=== PATIENT | male | born 1965 | race Caucasian/White ===

== ENCOUNTER 2017-03-14 08:09 | Inpatient (IN) | payer OTHER ==
--- NOTE | 2017-03-13 21:58 | GHP ---
[f rep st] PREOP HISTORY AND PHYSICAL DATE OF ADMISSION: 03/14/2017 PROBLEM: Severe left hip degenerative arthritis. HISTORY OF PRESENT ILLNESS: Nahid is a 52-year-old male who will be undergoing a left hip resurfacin g arthroplasty with Dr. Garduno at the [facility] on 03/14/2017. The patient first b carole having pain in his left hip 10 years ago. Progressively over time his pain got worse. In 2011 , he was diagnosed with arthritis. Now, he is having both daily pain at night and during the daytim e. His activities have become severely limited secondary to pain. He is able to ride an exercise b kristal, with pain. He uses Aleve on a weekly basis. He does have difficulty putting on shoes and sock s on the left side. He has not had any previous surgery, physical therapy or cortisone injections f or the left hip. Because of his progressive pain, advanced arthritis, and recalcitrant response to conservative therapies, the patient has elected to proceed with a left hip resurfacing arthroplasty. PAST MEDICAL HISTORY: Noncontributory. No previous history of DVT, PE, HI, CAD, MRSA infection, me stephania allergies or hepatitis. CURRENT MEDICATIONS: None. ALLERGIES: No known drug allergies. SOCIAL HISTORY: The patient is . He lives in [facility]. He is a nonsmoker, and occas ional alcohol intake. 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 FAMILY HISTORY: Noncontributory. PHYSICAL EXAMINATION: GENERAL: He is a healthy-appearing 52-year-old male. VITAL SIGNS: Height 6 feet 1 inch tall, weight 200 pounds. BMI 26.4. HEENT: Head is normocephalic, atraumatic. Eyes are PERRLA. Conjunctivae and sclerae are clear. M outh: He has good oral hygiene without any loose teeth. LUNGS: Clear. HEART: Regular rate and r hythm without murmurs, gallops, rubs. EXTREMITIES: Pertinent findings are limited to the patient's left hip. He has full hip extension, 90 degrees of flexion, 0 degrees of internal rotation, and 20 degrees of external rotation. IMAGING: Recent x-rays taken of the patient's left hip show severe degenerative arthritis of the le ft hip. He is bone on bone on the weightbearing aspect of the hip. He has large osteophyte formati on and increased subchondral sclerosis. No significant femoral lysis of the femoral head. IMPRESSION: On admission severe left hip degenerative arthritis. PLAN: The plan will be for the patient to undergo a left hip resurfacing arthroplasty with Dr. Medina or at the [facility] on Sunday, March 14, 2017. The surgery has been described to the patient including the risks, benefits, and expectations. He understands the risks and dislocat ion, femoral neck fracture, infection, sciatic nerve injury, as well as possible future revision isabel alex. He understands the issues surrounding metal ions in the blood and soft tissues around the hip joint. All his questions have been answered. He consents to surgery here in the office today. /[id number]/MODL
[~2017-03-14 08:09] MED LIST: NS IV ONE; POVIDONE-IODINE 20 ML in SODIUM CL IRRIG SOLUTION 500 ML IRR ONE; ROPIVACAINE 0.2% 80 MG, EPINEPHrine 0.2 MG, KETOROLAC TROMETHAMINE 30 MG in BAG 0 ML IU ONE; TRANEXAMIC ACID IV ONE; ceFAZolin 2 GM/DEXTROSE 100 ML IV ONE
[2017-03-14] MEDS ORDERED: ACETAMINOPHEN 325 MG TAB PO ONE (08:22)
[2017-03-14] MEDS ORDERED: FAMOTIDINE 20 MG TAB PO ONE (08:22)
[2017-03-14] MEDS ORDERED: DEXAMETHASONE 4 MG/ML VIAL IVP ONE (08:22)
[2017-03-14] MEDS ORDERED: LIDOCAINE 1% 2 ML INJ ID PRN (08:25)
[2017-03-14] MEDS ORDERED: LR 1,000 ML IV ONE (08:25)
[2017-03-14] MEDS ORDERED: MIDAZOLAM 2 MG/2 ML VIAL IVP ONE (09:05)
--- NOTE | 2017-03-14 09:30 | PDHPUP ---
History & Physical Update H&P update statement: This history and physical update is based on an assessment of the patient which was completed after admission or registration (within 24 hours), but prior to the surgery/procedure. H&P update: H&P reviewed & patient examined, no change in patient's condition since H&P completed
[2017-03-14] MEDS ORDERED: ceFAZolin 1 GM/5 ML SYR ONE (09:57)
--- NOTE | 2017-03-14 10:07 | PDANEPAE ---
ANE History of Present Illness 52 yo male with severe OA of L hip. ANE Past Medical History Past Medical History: No URI or fever in past 2 weeks. - Cardiovascular History Hx Hypertension: No Hx Arrhythmias: No Hx Chest Pain: No Hx Coronary Artery / Peripheral Vascular Disease: No Hx CHF / Valvular Disease: No Hx Palpitations: No - Pulmonary History Hx COPD: No Hx Asthma/Reactive Airway Disease: No Hx Recent Upper Respiratory Infection: No Hx Oxygen in Use at Home: No Hx Sleep Apnea: No Sleep Apnea Screening Result - Last Documented: Negative - Neurologic History Hx Cerebrovascular Accident: No Hx Seizures: No Hx Dementia: No - Endocrine History Hx Diabetes: No - Renal History Hx Renal Disorders: No - Liver History Hx Hepatic Disorders: No - Neurological & Psychiatric Hx Hx Neurological and Psychiatric Disorders: No - Cancer History Hx Cancer: No - Congenital Disorder History Hx Congenital Disorders: No - GI History Hx Gastrointestinal Disorders: No - Other Health History Other Health History: reading glasses - Chronic Pain History Chronic Pain: No - Surgical History Prior Surgeries: hpv polyps removed from throat. wisdom teeth extracted x2 ANE Review of Systems Review of systems is: negative - Exercise capacity METS (RN): 4 METS - Systems Constitutional: Reports: no symptoms Cardiac: Reports: no symptoms Respiratory: Reports: no symptoms ANE Patient History - Allergies Allergies/Adverse Reactions: Penicillins Allergy (Verified 03/07/17 10:40) Unknown - Home Medications Home Medications: Herbals/Supplements -Info Only 03/07/17 [Last Taken 03/07/17] - NPO status NPO Since - Liquids (Date): 03/13/17 NPO Since - Liquids (Time): 18:00 NPO Since - Solids (Date): 03/13/17 NPO Since - Solids (Time): 12:00 - Anes Hx Anes Hx: no prior problems - Smoking Hx Smoking Status: Never smoked Marijuana use: No - Alcohol Use Alcohol Use: Occasionally (daily drink) - Family Anes Hx Family Anes Hx: neg - N/A Family Hx Anesthesia Complications: none ANE Labs/Vital Signs - Vital Signs Blood Pressure: 123/72 Heart Rate: 70 Respiratory Rate: 16 O2 Sat (%): 95 Height: 185.42 cm Weight: 90.718 kg ANE Physical Exam - Airway Neck exam: FROM Mallampati Score: Class 2 Mouth exam: normal dental/mouth exam - Pulmonary Pulmonary: clear to auscultation - Cardiovascular Cardiovascular: regular rate and rhythym - ASA Status ASA Status: II ANE Anesthesia Plan Anesthesia Plan: spinal
[2017-03-14] MEDS ORDERED: PROPOFOL/EMULSION 500 MG/50 ML BOTTLE IV ONE (10:17)
[2017-03-14] MEDS ORDERED: LIDOCAINE 2% 5 ML SDV ONE (10:17)
[2017-03-14] MEDS ORDERED: fentaNYL 100 MCG/2 ML INJ ONE (10:17)
[2017-03-14] MEDS ORDERED: DEXAMETHASONE 4 MG/ML VIAL ONE (10:18)
[2017-03-14] MEDS ORDERED: PROPOFOL 200 MG/20 ML VIAL ONE (11:13)
[2017-03-14] MEDS ORDERED: NALOXONE HCL 0.4 MG/ML INJ IVP PRN (12:07)
[2017-03-14] MEDS ORDERED: OXYCODONE/APAP 5/325 TAB PO PRN (12:07)
[2017-03-14] MEDS ORDERED: ACETAMINOPHEN 500 MG TAB PO PRN (12:07)
[2017-03-14] MEDS ORDERED: fentaNYL 100 MCG/2 ML INJ IVP PRN (12:07)
[2017-03-14] MEDS ORDERED: ONDANSETRON 4 MG/2 ML VIAL IVP PRN ×2 (12:07→12:19)
[2017-03-14] MEDS ORDERED: LR 500 ML IV PRN (12:07)
--- NOTE | 2017-03-14 12:16 | POSTOPPROG ---
Post Op Note Date of Operation: 03/14/17 Surgeon: Maxwell Garduno Cable Maintainer: Jared Anesthesiologist: Dustin Anesthesia: IV Sedation, Spinal Post-op Diagnosis: Left hip advanced degenerative arthritis. Procedure: Left hip [place] hip resurfacing arthroplasty. Inf/Abcess present in the surg proc area at time of surgery?: No EBL: 50-100
[2017-03-14] MEDS ORDERED: PHARMACY PAIN CONSULT 1 EA MISC PRN (12:19)
[2017-03-14] MEDS ORDERED: METOCLOPRAMIDE 10 MG/2 ML VIAL IVP PRN (12:19)
[2017-03-14] MEDS ORDERED: NS 500 ML IV PRN (12:19)
[2017-03-14] MEDS ORDERED: PROMETHAZINE HCL 25 MG/ML INJ IVP PRN (12:19)
[2017-03-14] MEDS ORDERED: DIPHENOXYLATE/ATROPINE LOMOTIL 1 TAB PO PRN (12:19)
[2017-03-14] MEDS ORDERED: diphenhydrAMINE 25 MG CAP PO PRN (12:19)
[2017-03-14] MEDS ORDERED: TEMAZEPAM 15 MG CAP PO PRN (12:19)
[2017-03-14] MEDS ORDERED: PROMETHAZINE HCL 25 MG SUPPR PR PRN (12:19)
[2017-03-14] MEDS ORDERED: ONDANSETRON DISINTEGRATING 4 MG TAB PO PRN (12:19)
[2017-03-14] MEDS ORDERED: KETOROLAC 30 MG/1 ML SDV IVP PRN (12:19)
[2017-03-14] MEDS ORDERED: oxyCODONE IR 5 MG TAB PO PRN (12:19)
[2017-03-14] MEDS ORDERED: CYCLOBENZAPRINE 10 MG TAB PO PRN (12:19)
[2017-03-14] MEDS ORDERED: POLYETHYLENE GLYCOL 3350 17 GM PKT PO PRN (12:19)
[2017-03-14] MEDS ORDERED: traMADol 50 MG TAB PO PRN (12:19)
[2017-03-14] MEDS ORDERED: LACTULOSE 20 GM/30 ML UDCUP PO PRN (12:19)
[2017-03-14] MEDS ORDERED: MAGNESIUM HYDROXIDE 30 ML UDCUP PO PRN (12:19)
[2017-03-14] MEDS ORDERED: BISACODYL 10 MG SUPP PR PRN (12:19)
--- NOTE | 2017-03-14 12:44 | POSTANESTH ---
Post Anesthetic Evaluation Cardiovascular Status: Normal, Stable Respiratory Status: Normal, Stable Level of Consciousness/Mental Status: Can Participate in Eval, Alert and Oriented Pain Control: Adequate, Prn Tx Ordered Nausea/Vomiting Control: Adequate, Prn Tx Ordered Complications Possibly Related to Anesthesia: None Noted Notes: Able to move legs weakly, still insensate from spinal block.
[2017-03-14] MEDS ORDERED: ceFAZolin 2 GM/DEXTROSE 100 ML IV SCH (14:00)
[2017-03-14] MEDS: LR 1,000 ML IV SCH ×2 (15:31→23:46)
[2017-03-14] MEDS: ceFAZolin 2 GM/DEXTROSE 100 ML IV SCH (17:05)
[2017-03-14] MEDS: ACETAMINOPHEN 325 MG TAB PO SCH ×2 (18:25→23:46)
[2017-03-14] MEDS: FAMOTIDINE 20 MG TAB PO SCH (21:30)
[2017-03-14] MEDS: ASPIRIN 325 MG TAB PO SCH (21:30)
[2017-03-14] MEDS: SENNOSIDES/DOCUSATE SODIUM TAB PO SCH (21:30)
[2017-03-15] MEDS: ceFAZolin 2 GM/DEXTROSE 100 ML IV SCH (02:10)
--- NOTE | 2017-03-15 03:41 | GOP ---
[f rep st] OPERATIVE REPORT DATE OF OPERATION: 03/14/2017 SURGEON: Maxwell Garduno MD FITNESS FLOOR ATTENDANT: Milton Farrar CFA, and Arron Aguilar PA-C. ANESTHESIA: Combination of Marcaine spinal and IV sedation. ANESTHESIOLOGIST: Berta Alexander MD.. PREOPERATIVE DIAGNOSIS: Left hip severe degenerative arthritis. POSTOPERATIVE DIAGNOSIS: Left hip severe degenerative arthritis. PROCEDURE PERFORMED: March 14, 2017, left hip [place] hip resurfacing arthroplasty. FINDINGS: DESCRIPTION OF PROCEDURE: The patient was given 2 g of preoperative IV Ancef within 60 minutes of s urgery. He also received IV tranexamic acid at a dose of 20 mg/kg. He was placed on the operating room table and given spinal anesthesia with Marcaine by Dr. Alexander. He was then placed supine and given IV sedation. A Fink catheter was not used. He wore a compressive stocking and SCD on the no noperative leg. He was rolled to the right lateral decubitus position. An axillary roll was used, and all pressure points were carefully padded. The position was secured with the pegboard table att achment. I was careful to lock his pelvis in a vertical position. His perineum was isolated with p lastic adhesive drapes. The left hip and left lower extremity were prepped with ChloraPrep. They w ere draped free using sterile sheets, stockinette, and Ioban plastic drape. The [employer] time-out was performed to verify the correct patient identity, and the correct surgical side and site. The [place] time-out was also performed. I made a 6-inch straight, oblique, posterolateral hip skin incision. Subcutaneous tissues were kirby ply divided, and hemostasis was obtained using electrocautery. He was fit and muscular, and had a t hin layer of subcutaneous fat. The fascia scarlett was identified and split along the axis of its fiber s. I then curved posteriorly and proximally, and split the fascia of the gluteus asa and bluntl y split the muscle fibers in line with their orientation. His sciatic nerve was identified and prot ected throughout the procedure. The Charnley self-retaining retractor was inserted. The external r otators and the posterior hip capsule were divided as separate layers at the base of the femoral nec k, tagged, and reflected posteriorly. The gluteus asa tendon was divided and tagged in order to improve exposure and release tension on the sciatic nerve. The hip was dislocated posteriorly. I used a sizing gauge to check the diameter of the neck. He had a large, deformed femoral head with l arge osteophytes, particularly inferiorly and anteriorly. He was between a 52 mm and a 54 mm. When I trimmed some of the anterior neck osteophytes, it looked like the 52 mm head was the proper fit. I performed a circumferential capsulotomy. I was able to retract the femoral head anteriorly and s uperiorly, and hold it out of place with appropriate retractors. The remnant of his damaged labrum was excised. The acetabulum was reamed sequentially up to 58 mm. I selected the Prince monoblo ck porous-coated acetabular component with an outside diameter of 58 mm. This was firmly impacted a nd was a very tight fit. He had very good quality bone in his acetabulum. I was careful to determi ne proper inclination and anteversion. I used the remnant of his transverse acetabular ligament and other acetabular bony landmarks to help determine proper cup orientation. He had large posterior-i nferior osteophytes, which I removed with an osteotome and rongeur. I was careful to leave a good l ip of bone and capsule extending beyond the anterior-inferior lip of the metal cup. I returned to preparation of the femoral head. Using appropriate jigs and guides, I inserted a guid e pin into the femoral head and neck. I was careful to position in such a way that there be no notc bay of the neck. He had significant posterior translation of his femoral head on the neck. When I inserted the guide pin, I tried to center it on the neck and correct the significant anterior trans lation. A large, sterile metal goniometer was used to check the neck-shaft angle. I reamed over th e guide pin and inserted the reaming guide. I then used the cylindrical reamer down to the head and neck junction. This was followed by the flat reamer and the chamfer reamer. The head was sized fo r 52 mm. There was no impingement or damage to the neck. He had a 6 mm degenerative cyst on the thomas perior aspect of the cut surface of the femoral head. I curetted the gelatinous material from the c yst. It did not affect the structural integrity of the femoral head. I drilled a small hole in the lesser trochanter and inserted a suction cannula to create negative pressure in the medullary canal . Small holes were drilled on the flattened chamfer surfaces of the prepared head for cement anchor s. The head was thoroughly cleaned with the pulsating lavage and carefully dried. I used a CarboJe t device to blow dry the cancellous surfaces. A single batch of Simplex cement with tobramycin was mixed. At about 50 seconds, I poured the liquid cement into the head component, inserted it on the femoral head, and impacted it into place. Excess cement was removed before it hardened. The acetab ulum was irrigated, cleaned, and inspected, and the hip was reduced. Stability and range of motion were checked. I placed my finger along the anterior aspect of the acetabular component and flexed t he hip to 110 degrees. There was no anterior impingement. The suction cannula and lesser trochante r were removed. The wound was thoroughly irrigated with a dilute Betadine solution. 40 mL of the j oint anesthetic cocktail was injected into the capsule, the deep musculature, and subcutaneous tissu es along the skin edges. His sciatic nerve was reinspected and looked unharmed. The external rotators and the posterior hip capsule were repaired in separate layers with #2 FiberWire sutures through drill holes in the greate r trochanter. The gluteus asa tendon was repaired with 2 interrupted [id number] #2 FiberWi re sutures. The fascia scarlett was closed first with 2 interrupted [id number] #2 FiberWire suture s, followed by a running #2 barbed Ethicon Stratafix PDO suture. Subcutaneous tissues were closed w ith a running 0 barbed Ethicon Stratafix Monoderm suture. The skin was closed with a running 3-0 ba rbed Ethicon Stratafix Monoderm subcuticular suture. The skin edges were reapproximated and sealed with Dermabond glue. The wound was covered with a strip of Telfa, and everything was held in place with a piece of clear plastic Tegaderm. The estimated blood loss about 400 mL. I used a [employer] [place] hip resurfacing system. The acetabular component was 58 mm in diameter and press-fit. The femoral head was 52 mm and cemented. He was awakened from anesthesia and rolled to the supine position on his hospital bed. A long-leg c ompressive stocking and SCD were applied to the operative leg. An abduction pillow was placed betwe en his knees. He was taken to PACU in satisfactory condition. There were no recognized intraoperat marcio complications. The sponge and needle counts were correct on 2 occasions. Milton Farrar and Nahid Aguilar acted as surgical assistants. Their assistance was a medical neces sity for safe completion of the procedure. Copy requested to: Temo Harden MD [facility] /[id number]/MODL
[2017-03-15 05:06] LABS: HEMOGLOBIN 12.8 g/dL (13.7-17.5)
[2017-03-15] MEDS: ACETAMINOPHEN 325 MG TAB PO SCH (05:43)
--- NOTE | 2017-03-15 07:18 | SOAPPROG ---
SOAP Progress Note Assessment/Plan: Assessment: Afebrile. Awake and alert. Moderate pain. The patient has been walking in the room. Voided spontaneously. Hemoglobin and hematocrit are good. Postop films look good. Sciatic nerve intact. Dressing is dry. Plan: Up with physical therapy today. Discharged later today. 03/15/17 07:16 Objective: Vital Signs Temp Pulse Resp BP Pulse Ox 36.9 C 68 16 117/70 95 03/15/17 04:00 03/15/17 04:00 03/15/17 04:00 03/15/17 04:00 03/15/17 04:00 Laboratory Results 03/15/17 04:40 03/14/17 03/15/17 03/16/17 05:59 05:59 05:59 Intake Total 950 Output Total 1050 Balance -100 ICD10 Worksheet Patient Problems: Problems Problem Status Onset Osteoarthritis of left hip Acute
[2017-03-15 07:36] VITALS: BP 118/65; PULSE 80; RESP 18; TEMP 98.3; O2SAT 96
[2017-03-15] MEDS: ASPIRIN 325 MG TAB PO SCH (08:29)
[2017-03-15] MEDS: SENNOSIDES/DOCUSATE SODIUM TAB PO SCH (08:29)
[2017-03-15] MEDS: FAMOTIDINE 20 MG TAB PO SCH (08:30)
[2017-03-15] MEDS ORDERED: FERROUS SULFATE 140 MG TAB.ER PO SCH (09:00)
--- NOTE | 2017-03-15 17:19 | GDS ---
[f rep st] DISCHARGE SUMMARY ADMISSION DIAGNOSIS: Left hip severe degenerative arthritis. DISCHARGE DIAGNOSIS: Left hip severe degenerative arthritis. OPERATION PERFORMED: 03/14/2017, a left hip [place] hip resurfacing arthroplasty. POSTOPERATIVE COMPLICATIONS: None. CONDITION ON DISCHARGE: Improved. DESCRIPTION OF HOSPITAL COURSE: The patient was admitted to the hospital on the morning of surgery. His admission CBC was normal. The same day, under a combination of Marcaine, spinal, and IV sedat ion, he underwent a left hip [place] hip resurfacing arthroplasty. Postoperatively, he was treat ed with multimodal DVT prophylaxis, including aspirin. On the first postoperative day, his hemoglob in and hematocrit were 12.8 and 38.0. He did not require any transfused blood. He was seen by [facility] and made good progress with ambulation and stairs. By the time of discharge, he was af ebrile, his wound was clean and dry, and he was independent walking. DISPOSITION: The patient is discharged to his home in [place]. He will go to outpatient physical [facility]. Use JLUIS stockings for 1 week. Continue aspirin 325 mg p.o. daily for 21 days. I will see h im back in the office on April 05, 2017. If there are any problems, he is to call me at the office . Copy requested to: MD Danilo Browne [employer] /[id number]/VALARIEL
== END 2017-03-15 11:15 | disposition home or self-care (01) | DRG 470 ==
LOC: F3N 08:09
PROVIDERS: ADMIT Orthopaedic Surgery; ATTEND Orthopaedic Surgery
PROC: 0SRB0J9 Replacement of Left Hip Joint with Synthetic Substitute, Cemented, Open Approach (ICD-10-PCS; principal; 2017-03-14 09:45)
DX: M16.12 Unilateral primary osteoarthritis, left hip (principal)
CPT/HCPCS: 97116-GP; 97161-GP; 97165-GO; 97530-GP; C1713; C1769; J0171; J0690; J1100; J1885; J2250; J2704; J2795; J3010